=== PATIENT | female | born 1980 | race Caucasian/White ===

== ENCOUNTER → 2017-03-13 | Outpatient (CLI) | payer OTHER, MEDICAID ==
[~2017-03-13] MED LIST: ACET-1600 PO; HYDR-882 PO; NITR100C56; PREN1TAB52 PO; no meds per pt
== END | disposition home or self-care (01) ==
LOC: RAD 16:48
PROVIDERS: ATTEND Family Medicine
DX: M54.9 Dorsalgia, unspecified (principal); R10.31 Right lower quadrant pain
CPT/HCPCS: 74176